=== PATIENT | male | born 1980 | race Caucasian/White ===

== ENCOUNTER → 2019-09-30 | Outpatient (CLI) | payer OTHER ==
--- NOTE | ~2019-09-30 | PF ---
[address] [address] PULMONARY FUNCTION REPORT Name: CK BLACKMON Room: [facility]#: [id number] Admission: 09/30/19 Attend Phys: Brian Archibald MD Discharge: Date of : 82 Report #: [id number] THIS REPORT FOR: //name// CC: Brian Archibald [facility] unknown DATE OF SERVICE: 10/07/2019 DATA: Forced vital capacity is 5.11, 99% predicted. FEV1 is 3.84, 93% predicted. FEV1/FVC ratio is 75. Total lung capacity is not measured. Diffusion capacity was not done. IMPRESSION: Normal spirometry, no significant airflow limitation. By: [id number] Leary MD /marry
== END ==
LOC: M.PUL 09:56
DX: J45.909 Unspecified asthma, uncomplicated (principal)